=== PATIENT | male | born 1965 ===

== ENCOUNTER 2018-10-12 09:08 | Day surgery (SDC) | payer BC ==
[~2018-10-12] VITALS: Ht 180.3 cm; Wt 134.7 kg
[2018-10-12 09:57] VITALS: BP 131/81
[2018-10-12] MEDS ORDERED: PHEN30CA3 PO (09:57)
[2018-10-12] MEDS ORDERED: TRAZ-136 PO (09:57)
[2018-10-12] MEDS ORDERED: LACTATED RINGERS 1,000 ML IV SCH (10:01)
[2018-10-12] MEDS ORDERED: FENTANYL PF 100 MCG/2ML ONE (10:59)
[2018-10-12] MEDS ORDERED: MIDAZOLAM 1 MG/ML, 2ML ONE (10:59)
[2018-10-12] MEDS ORDERED: LABETALOL 5MG/ML, 20ML IV PRN (11:30)
[2018-10-12] MEDS ORDERED: FENTANYL PF 100 MCG/2ML IV PRN (11:30)
[2018-10-12] MEDS ORDERED: ONDANSETRON 2MG/ML, 2ML IV PRN (11:30)
[2018-10-12] MEDS ORDERED: hydrALAzine 20 MG/ML, 1ML IV PRN (11:30)
[2018-10-12] MEDS ORDERED: OXYcodone 5 MG/5 ML ORAL.SOL UDC PO PRN (11:30)
[2018-10-12] MEDS ORDERED: MORPHINE SULFATE 4 MG/ML, 1ML IVPush PRN (11:30)
[2018-10-12] MEDS ORDERED: PROMETHAZINE 25 MG/ML, 1ML IV PRN (11:30)
[2018-10-12] MEDS ORDERED: PROPOFOL 10 MG/ML, 20ML ONE (11:31)
== END 2018-10-12 13:45 | disposition home or self-care (01) ==
LOC: OUT 09:08
PROVIDERS: ATTEND Internal Medicine Gastroenterology
DX: Z12.11 Encounter for screening for malignant neoplasm of colon (principal); D12.0 Benign neoplasm of cecum; D12.3 Benign neoplasm of transverse colon; K62.1 Rectal polyp; K57.30 Diverticulosis of large intestine without perforation or abscess without bleeding; K64.8 Other hemorrhoids; Z98.890 Other specified postprocedural states
CPT/HCPCS: 45380; 45385; 88305; J2250; J2704; J3010; J7120